=== PATIENT | male | born 1950 | race Caucasian/White ===

== ENCOUNTER → 2022-10-26 | Outpatient (CLI) | payer OTHER ==
[2022-10-26 17:28] LABS: HCT 43.9 % (39.6-50.0); HGB 14.3 d/dL (12.0-15.0); MCH 24.2 pg (27.0-32.0); MCHC 32.6 d/dL (32.0-37.0); MCV 74.4 FL (80.0-97.0); Mean Platelet Volume 9.1 FL (9.5-12.2); NRBC Per 100 WBC 0 X 10*3/uL (0.00-0.01); Platelet Count 286 X 10*3/uL (140-440); RDW 22.5 % (11.5-14.5); WBC 8.39 X 10*3/uL (4.50-10.00)
[2022-10-26 17:55] LABS: Basophils # (A) 0.06 X 10*3/uL (0.00-0.10); Basophils % (A) 0.7 %; Eosinophils # (A) 0.24 X 10*3/uL (0.04-0.35); Eosinophils % (A) 2.9 %; Lymphocytes # (A) 2.41 X 10*3/uL (0.90-5.00); Lymphocytes % (A) 28.7 %; Monocytes # (A) 0.96 X 10*3/uL (0.20-1.00); Monocytes % (A) 11.4 %; Neutrophils % (A) 56.1 %
[2022-10-26 18:33] LABS: Erythrocyte Sedimentation Rate 5 mm/Hr (0-20)
== END | disposition home or self-care (01) ==
LOC: LABWHC1 11:21
PROVIDERS: ATTEND Orthopaedic Surgery
DX: M25.50 Pain in unspecified joint (principal)
CPT/HCPCS: 36415; 85025; 85652; 86140

== ENCOUNTER 2024-04-25 07:04 | Day surgery (SDC) | payer OTHER ==
[2024-04-25] MEDS ORDERED: LACTATED RINGERS 1,000 ML IV SCH (07:14)
[2024-04-25] MEDS ORDERED: LIDOCAINE 1% (10MG/ML) FOR IV START INTRADERMA PRN (07:14)
[2024-04-25 07:21] VITALS: TEMP 98.4
[2024-04-25] MEDS: IV FLUID CONTINUATION 1,000 ML IV ONE (07:26)
[2024-04-25] MEDS ORDERED: PROPOFOL 10 MG/ML 20 ML VIAL IV ONE (07:30)
--- NOTE | 2024-04-25 07:51 | P.PCN ---
Date of Procedure: 04/25/24 Procedure(s) Performed: Brief history: Patient is a pleasant 74-year-old pleasant white male scheduled for an elective upper endoscopy as well as colonoscopy as a part of evaluation of GERD/Baeza's esophagus and positive Cologuard/screening for colon cancer Procedure performed: Esophagogastroduodenoscopy with biopsy Colonoscopy with biopsy Preoperative diagnosis: GERD/Baeza's esophagus Screening for colon cancer/positive Cologuard Anesthesia: MAC Procedure: After informed consent was obtained from the patient was brought into the endoscopy unit and IV sedation was administered by anesthesia under continuous monitoring. Initially upper endoscopy was done. The Olympus GF 160 video endoscope was inserted inserted into the mouth and esophagus intubated without any difficulty and was gradually advanced into the stomach and duodenum and carefully examined. The bulb and second part of the duodenum appeared normal. The scope was then withdrawn into the stomach adequately insufflated with air and upon careful examination the antrum had gastritis and biopsies were done from this area. Mucosa of the body, cardia and fundus appeared normal. The scope was then withdrawn into the esophagus. Small hiatal hernia noted. The GE junction was located at 40 cm to the incisors. It appeared irregular with no erythema erosions or ulcerations. No evidence of Baeza's esophagus. Rest of the esophagus appeared normal. Patient tolerated the procedure well. At this time the patient continued to remain sedation. Initial digital rectal examination was normal. Olympus CF 160 video colonoscope was then inserted into the rectum and gradually advanced to the cecum without any difficulty. Careful examination was performed as the scope was gradually being withdrawn. The prep was excellent. The cecum, ascending colon, transverse colon, descending colon, sigmoid colon and rectum appeared normal. There is a 4 mm polyp that was removed by cold biopsy. Retroflexion was performed in the rectum and no lesions were noted. Patient tolerated the procedure well. Impression: 1. Upper endoscopy revealed mild antral gastritis and small hiatal hernia but no evidence of Baeza's esophagus 2. Colonoscopy revealed 4 mm proximal rectal polyp status post cold biopsy Recommendations: Findings of this examination were discussed with the patient as well as his family.. He was advised to follow-up with the biopsy results. If the biopsy reveals adenoma he can have repeat colonoscopy in 5 years. Continue with current medications and follow antireflux measures
[2024-04-25 08:37] VITALS: BP 120/75; PULSE 98; RESP 17
== END 2024-04-25 08:49 | disposition home or self-care (01) ==
LOC: ORWHC2ENDO 07:04
PROVIDERS: ATTEND Internal Medicine Gastroenterology
DX: K62.1 Rectal polyp (principal); K29.50 Unspecified chronic gastritis without bleeding; K22.70 Barrett's esophagus without dysplasia; K21.9 Gastro-esophageal reflux disease without esophagitis; K44.9 Diaphragmatic hernia without obstruction or gangrene; I10 Essential (primary) hypertension; E78.5 Hyperlipidemia, unspecified; E11.9 Type 2 diabetes mellitus without complications; N40.0 Benign prostatic hyperplasia without lower urinary tract symptoms; I73.9 Peripheral vascular disease, unspecified; F43.10 Post-traumatic stress disorder, unspecified; K76.0 Fatty (change of) liver, not elsewhere classified; Z85.46 Personal history of malignant neoplasm of prostate; Z87.891 Personal history of nicotine dependence; Z79.899 Other long term (current) drug therapy
CPT/HCPCS: 88305; 45380; 43239; J2704

== ENCOUNTER → 2024-11-01 | Outpatient (CLI) | payer OTHER ==
[2024-11-01 15:32] LABS: % Iron Saturation 26.73 (15.00-50.00); ALT 45 U/L (10-49); AST 30 U/L (14-35); Albumin 4.2 g/dL (3.8-4.9); Albumin/Globulin Ratio 1.56 Ratio (1.60-3.17); Alkaline Phosphatase 123 U/L (41-126); BUN/Creat Ratio 17.91 Ratio (12.00-20.00); Blood Urea Nitrogen 19.7 mg/dL (9.0-27.0); Carbon Dioxide 24.5 mmol/L (21.6-31.8); Chloride 102 mmol/L (96-109); Globulin 2.7 g/dL (1.6-3.3); Glucose 111 mg/dL (70-110); Iron 85 UG/DL (65-175); Potassium 4.7 mmol/L (3.5-5.5); Sodium 136 mmol/L (135-145); Total Iron Binding Capacity 318 UG/DL (228-460); Total Protein 6.9 g/dL (6.2-8.2)
[2024-11-01 15:44] LABS: Ceruloplasmin 18.9 mg/dL (20.0-60.0)
== END | disposition home or self-care (01) ==
LOC: LABWHC1 10:02
PROVIDERS: ATTEND Internal Medicine Gastroenterology
DX: R79.89 Other specified abnormal findings of blood chemistry (principal)
CPT/HCPCS: 36415; 80053; 82103; 82390; 82728; 83516; 83540; 83550; 86038